=== PATIENT | female | born 1980 | race Asian ===

== ENCOUNTER 2016-11-08 06:50 | Inpatient (IN) | payer OTHER ==
[2016-11-08] MEDS: ELECTROLYTE-148 SOLN 1,000 ML IV SCH (07:28)
[2016-11-08] MEDS ORDERED: CITRIC ACID/SODIUM CITRATE 30 ML UNIT-DOSE CUP PO ONE (07:48)
--- NOTE | 2016-11-08 07:55 | HP ---
Past Medical History - Primary Care Physician PCP:: Jonathan Church - Admission Chief Complaint: 39 weeks, previous c/s , request of c/s History of Present Illness: 36 yo f , one previous c/s ,request of repeat c/s, rba discussed, cx closed,, discussed History Source: Patient Limitations to Obtaining History: No Limitations - Past Medical History ...: 3 ...Para: 1 ...Term: 1 ...Spon : 1 ...EDC by Dates: 11/05/16 ...EDC by Sono: 11/15/16 Additional OB History: abnormal 1 hr gtt, normal 3 hr - Past Surgical History Past Surgical History: Yes: Hx Myomectomy: No Hx Transabdominal Cerclage: No - Smoking History Smoking history: Never smoked - Alcohol/Substance Use History of Substance Use: reports: None - Social History Usual Living Arrangement: Yes: With Spouse History of Recent Travel: No Home Medications - Allergies Allergies/Adverse Reactions: Allergies Allergy/AdvReac Type Severity Reaction Status Date / Time metoclopramide HCl Allergy Verified 03/14/13 20:52 [From Reglan] - Home Medications Home Medications: Ambulatory Orders No Home Medications 0 dose .ROUTE UTDICT 03/14/13 Review of Systems - Review of Systems Constitutional: reports: No Symptoms Eyes: reports: No Symptoms HENT: reports: No Symptoms Neck: reports: No Symptoms Cardiovascular: reports: No Symptoms Gastrointestinal: reports: No Symptoms Genitourinary: reports: No Symptoms Breasts: reports: No Symptoms Reported Musculoskeletal: reports: No Symptoms Integumentary: reports: No Symptoms Neurological: reports: No Symptoms Endocrine: reports: No Symptoms Hematology/Lymphatic: reports: No Symptoms Psychiatric: reports: No Symptoms Physical Exam - Maternity Constitutional: Yes: Well Nourished, No Distress, Calm Eyes: Yes: WNL, Conjunctiva Clear, EOM Intact HENT: Yes: WNL, Atraumatic, Normocephalic Neck: Yes: WNL, Supple, Trachea Midline Cardiovascular: Yes: WNL, Regular Rate and Rhythm Breast(s): Yes: WNL - Abdominal Exam/OB Fundal Height: 40 Number of Fetuses: Single Presentation: Vertex Intensity: Unaware Monitor Mode: External Heart Rate Location: LLQ Category: I - Vaginal Exam/OB Vaginal Bleediing: No Speculum Exam: No Dilatation (cm): closed Effacement (%): 50 Amniotic Membrane Status: Intact Presentation: Vertex/Position Station: -3 - Physical Exam Extremities: Yes: WNL Edema: Yes Edema: LLE: 1+, RLE: 1+ Deep Tendon Reflex Grade: Normal +2 Hemorrhage Risk Assessment - Risk Factors Medium Risk Factors: Yes: None High Risk Factors: Yes: None Risk Score: 1 Risk Level: Medium Risk Problem List - Problems (1) with 39 completed weeks gestation Code(s): Z3A.39 - 39 WEEKS GESTATION OF (2) Previous delivery, antepartum Code(s): O34.219 - MATERNAL CARE FOR UNSP TYPE SCAR FROM PREVIOUS DEL (3) Advanced maternal age (AMA) in Code(s): SHB9071 - Assessment/Plan c/s rba discussed
[2016-11-08 08:11] VITALS: BMI 32.9
[2016-11-08] MEDS ORDERED: ONDANSETRON 4 MG/2 ML VIAL IVPB PRN (09:04)
[2016-11-08] MEDS ORDERED: ACETAMINOPHEN 1000 MG/100 ML VIAL (NON FORMULARY) IVPB PRN (09:06)
[2016-11-08] MEDS: OXYTOCIN 20 UNITS in 0.9% NS 1,000 ML IV SCH ×2 (09:15→11:16)
[2016-11-08] MEDS ORDERED: BENZOCAINE 28 GM HEMORRHOIDAL OINTMENT PR PRN (09:31)
[2016-11-08] MEDS ORDERED: METHYLERGONOVINE MALEATE 0.2 MG/1 ML AMP IM PRN (09:31)
[2016-11-08] MEDS ORDERED: diphenhydrAMINE HCL 25 MG CAPSULE (FP) PO PRN (09:31)
[2016-11-08] MEDS ORDERED: IBUPROFEN 800 MG/8 ML IJ IVPB PRN (09:31)
[2016-11-08] MEDS ORDERED: oxyCODONE HCL 5 MG TABLET PO PRN ×2 (09:31)
[2016-11-08] MEDS ORDERED: BENZOCAINE 20% 57 GM BOTTLE TP PRN (09:31)
[2016-11-08] MEDS ORDERED: WITCH HAZEL 50% (TUCKS) 40 PAD/JAR PAD TP PRN (09:31)
[2016-11-08] MEDS ORDERED: DEXTROSE 5%-LACTATED RINGERS 1,000 ML IV SCH (09:45)
[2016-11-08] MEDS: CEFAZOLIN 1 GM/D5W 50 ML IVPB SCH ×2 (11:12→17:30)
[2016-11-08] MEDS: IBUPROFEN 800 MG/8 ML IJ IVPB PRN (11:58)
[2016-11-08] MEDS ORDERED: TUBERCULIN PPD 5 TU/0.1ML SYRINGE (IN PATIENT USE ONLY) ID ONE (12:00)
[2016-11-09] MEDS: IBUPROFEN 800 MG/8 ML IJ IVPB PRN (05:44)
[2016-11-09 07:16] LABS: BASOPHIL 0.4 % (0-2.0); EOSINOPHIL 0.4 % (0-4.5); MCH 29.7 pg (25.7-33.7); MCHC 33.7 g/dl (32.0-36.0); MEAN CELL VOLUME 88.1 fl (80-96); MEAN PLT VOLUME 8.8 fl (7.5-11.1); NEUTROPHILS 69.9 % (42.8-82.8); PLATELET COUNT 170 K/MM3 (134-434); RDW 13.3 % (11.6-15.6); WHITE BLOOD COUNT 6.7 K/mm3 (4.0-10.0)
[2016-11-09] MEDS ORDERED: BISACODYL 10 MG SUPP.RECT RC PRN (09:31)
[2016-11-09] MEDS: ENOXAPARIN NA (PORCINE) 40 MG/0.4 ML DISP.SYRIN SQ SCH (10:00)
[2016-11-09] MEDS ORDERED: ACETAMINOPHEN 325 MG TABLET (FP) ONE (10:42)
[2016-11-09] MEDS: SIMETHICONE 80 MG TAB.CHEW (FP) PO PRN ×3 (10:43→19:46)
--- NOTE | 2016-11-09 11:47 | PN ---
Progress Note (short form) - Note Progress Note: pod 1 , doing well, no excess vaginal bleeding CBC, BMP 11/09/16 06:00 Last Vital Signs Temp Pulse Resp BP Pulse Ox 98.6 F 89 18 117/68 100 11/09/16 05:20 11/09/16 05:20 11/09/16 06:00 11/09/16 05:20 11/08/16 14:16 abdomen soft, no distension, no cva incision dry, clean no calf tenderness plan ambulate, advance diet, iron and vit Problem List - Problems (1) with 39 completed weeks gestation Code(s): Z3A.39 - 39 WEEKS GESTATION OF (2) Previous delivery, antepartum Code(s): O34.219 - MATERNAL CARE FOR UNSP TYPE SCAR FROM PREVIOUS DEL (3) Advanced maternal age (AMA) in Code(s): VGV8408 -
[2016-11-09] MEDS ORDERED: DIPHTH,PERTUSS(ACELL),TET 0.5 ML DISP.SYRIN IM ONE (14:00)
[2016-11-09] MEDS: ACETAMINOPHEN 325 MG TABLET (FP) PO PRN ×3 (15:08→23:17)
[2016-11-09] MEDS: IBUPROFEN 600 MG TABLET (FP) PO PRN ×3 (15:09→23:18)
--- NOTE | 2016-11-09 16:37 | PN ---
Progress Note (short form) - Note Progress Note: Anesthesiology post op check S/p c section post op day 1 under spinal anesthesia with duramorph for post op pain control Patient reports adequate pain control, no nausea or vomiting and full return of motor function. Vital Signs Temperature 98.6 F 11/09/16 05:20 Pulse Rate 89 11/09/16 05:20 Respiratory Rate 20 11/09/16 08:00 Blood Pressure 117/68 11/09/16 05:20 O2 Sat by Pulse Oximetry (%) 100 11/08/16 14:16 No sign of neurologic deficits A/P no adverse effects of anesthetic, dept of anesthesia will sign off care at this time, Feel free to re consult the department with further questions or concerns regarding pain or the anesthetic administered.
[2016-11-09] MEDS: SENNOSIDES/DOCUSATE COMBO (SENNA PLUS) TABLET (UD) PO PRN (22:00)
[2016-11-10] MEDS: IBUPROFEN 600 MG TABLET (FP) PO PRN ×5 (03:02→21:58)
[2016-11-10] MEDS: ACETAMINOPHEN 325 MG TABLET (FP) PO PRN ×5 (03:02→21:58)
[2016-11-10] MEDS: ENOXAPARIN NA (PORCINE) 40 MG/0.4 ML DISP.SYRIN SQ SCH (09:34)
--- NOTE | 2016-11-10 12:02 | PN ---
Progress Note (short form) - Note Progress Note: pod 2 doing well, no c/o voids ok. passing gas CBC, BMP 11/09/16 06:00 Last Vital Signs Temp Pulse Resp BP Pulse Ox 98.9 F 66 20 129/72 100 11/10/16 09:00 11/10/16 09:00 11/10/16 09:00 11/10/16 09:00 11/08/16 14:16 abdomen soft, no distension, no cva incision dry, clean no calf tenderness plan ambulate, cbc in am Problem List - Problems (1) with 39 completed weeks gestation Code(s): Z3A.39 - 39 WEEKS GESTATION OF (2) Previous delivery, antepartum Code(s): O34.219 - MATERNAL CARE FOR UNSP TYPE SCAR FROM PREVIOUS DEL (3) Advanced maternal age (AMA) in Code(s): [id number] -
[2016-11-10] MEDS: SIMETHICONE 80 MG TAB.CHEW (FP) PO PRN ×3 (12:06→21:58)
[2016-11-10] MEDS: SENNOSIDES/DOCUSATE COMBO (SENNA PLUS) TABLET (UD) PO PRN (22:00)
[2016-11-11] MEDS: ELECTROLYTE-148 SOLN 1,000 ML IV SCH (05:05)
[2016-11-11] MEDS: IBUPROFEN 600 MG TABLET (FP) PO PRN ×3 (05:09→15:10)
[2016-11-11] MEDS: ACETAMINOPHEN 325 MG TABLET (FP) PO PRN ×3 (05:09→15:11)
--- NOTE | 2016-11-11 08:03 | DS ---
Physical Exam-SLIVER LAPPER Vital Signs: Vital Signs Temperature 98.2 F 11/10/16 22:00 Pulse Rate 67 11/10/16 22:00 Respiratory Rate 18 11/10/16 22:00 Blood Pressure 120/75 11/10/16 22:00 O2 Sat by Pulse Oximetry (%) 100 11/08/16 14:16 Constitutional: Yes: Well Nourished, No Distress, Calm Eyes: Yes: WNL, Conjunctiva Clear, EOM Intact HENT: Yes: WNL, Atraumatic, Normocephalic Neck: Yes: WNL, Supple, Trachea Midline Cardiovascular: Yes: WNL, Regular Rate and Rhythm Respiratory: Yes: WNL, Regular, CTA Bilaterally Gastrointestinal: Yes: WNL ...Rectal Exam: Yes: WNL Renal/: Yes: WNL External Genitalia: Yes: Normal ....Post : Yes: Uterus firm, Uterus non-tender, Slight lochia rubra Breast(s): Yes: WNL Musculoskeletal: Yes: WNL Extremities: Yes: WNL Edema: LLE: Trace, RLE: Trace Integumentary: Yes: WNL Wound/Incision: Yes: Clean/Dry, Well Approximated, Sutures Intact Neurological: Yes: WNL, Alert, Oriented ...Motor Strength: WNL Psychiatric: Yes: WNL, Alert, Oriented Labs: CBC, BMP 11/09/16 06:00 Delivery - Delivery Section: Repeat, Low Flap Transverse (no complication) Type of Anesthesia: Spinal Episiotomy/Laceration: None EBL (cc): 500 Delivery, Single - Stages of Labor Date of Delivery: 11/08/16 Time of Delivery: 08:58 Time Placenta Delivered: 08:59 Placenta: Yes: Expressed - Condition of [employer] Boards Router/Paralegal Legal Secretary Present: Yes Name: Silverio Geller Gender: Male Weight: 8 lb 5 oz Position: Right, OT Total Hours ROM (Hrs/Mins): 2 min - 1 Minute Total Score: 9 10 Minutes Total Score: 9 - [place] Feeding Plan Initial Plan: Elected not to breastfeed exclusively throughout hospitalization Discharge Summary Reason For Visit: previous c/s Current Active Problems Advanced maternal age (AMA) in (Acute) with 39 completed weeks gestation (Acute) Previous delivery, antepartum (Acute) Procedures: Principal: repeat LST c/s Hospital Course: uneventful Condition: Good - Instructions Diet, Activity, Other Instructions: regular diet, follow up office 1 week, no intercourse Referrals: Jonathan Church MD [Staff Physician] - Disposition: HOME - Home Medications Comprehensive Discharge Medication List: Ambulatory Orders No Home Medications 0 dose .ROUTE UTDICT 03/14/13 Vit No.130/Iron/FA [ Vitamins] 1 each PO DAILY 11/08/16 Ibuprofen [Motrin -] 600 mg PO QID #28 tablet 11/10/16
[2016-11-11 08:46] LABS: BASOPHIL 0.2 % (0-2.0); EOSINOPHIL 1.8 % (0-4.5); MCH 29.5 pg (25.7-33.7); MCHC 33.5 g/dl (32.0-36.0); MEAN PLT VOLUME 8.4 fl (7.5-11.1); NEUTROPHILS 75.6 % (42.8-82.8); PLATELET COUNT 199 K/MM3 (134-434); WHITE BLOOD COUNT 6.1 K/mm3 (4.0-10.0)
[2016-11-11] MEDS: SIMETHICONE 80 MG TAB.CHEW (FP) PO PRN ×2 (09:53→15:12)
[2016-11-11] MEDS: ENOXAPARIN NA (PORCINE) 40 MG/0.4 ML DISP.SYRIN SQ SCH (09:57)
[2016-11-11 11:09] VITALS: BP 123/75; PULSE 65; TEMP 98.1
--- NOTE | 2016-11-11 23:45 | OP ---
DATE OF OPERATION: 11/08/2016 PREOPERATIVE DIAGNOSIS: at 39 weeks, previous section, requests repeat section. POSTOPERATIVE DIAGNOSIS: at 39 weeks, previous section, requests repeat section. PROCEDURE: Repeat low segment transverse section. SURGEON: Jonathan Navarro MD AUTOMATIC NAILING MACHINE FEEDER: Tyler Dave MD ANESTHESIA: Spinal. ESTIMATED BLOOD LOSS: 500 mL. OPERATION: The patient was taken to the operating room with adequate spinal anesthesia. Abdomen and perineum were prepped and draped. Pfannenstiel abdominal skin incision was made over the previous incision. Abdominal wall was cut layer by layer until the peritoneum was exposed and incised. Upon entering the abdominal cavity, lower uterine segment was identified on the uterovesical fold. The bladder flap was established and the bladder was pushed down. With the lower blade of the [place] retractor in the pelvis, a low transverse uterine incision was made. The incision was extended laterally and amniotic sac was entered, clear fluid. Head delivered. Nasal sinuses were suctioned. Live baby was delivered without any difficulty. Placenta was delivered manually. Uterine cavity was cleaned of all remaining tissue. Uterine incision was closed in 2 layers; 1st layer with 0 Biosyn continuous suture and the 2nd layer with 0 Biosyn imbricating the 1st layer. Bladder flap was closed with 0 Biosyn continuous suture. Both tubes and ovaries were checked and normal. No active bleeding was seen. All of the lap, sponge count, and instrument counts were correct. The peritoneum was closed with 0 Biosyn continuous suture. Muscles were brought together with interrupted suture of 0 Biosyn. Fascia was closed with 0 Biosyn continuous suture. Subcutaneous fat, interrupted sutures with 0 Biosyn. Skin was closed with 3-0 Vicryl subcuticular sutures. Patient tolerated the procedure well and left the OR in good condition. Christi [id number]
--- NOTE | 2016-11-12 17:01 | PATH ---
Surgical Pathology Report Patient Name: LICHA EDMONDS Med. Rec. #: [id number] /Age/Gender: 1980 (Age: 36) / F Account: [id number] Location: [facility] OBS/FELT COVERER Taken: 11/08/2016 Received: 11/11/2016 Reported: 11/12/2016 Physicians: Jonathan Church M.D. Specimen(s) Received PLACENTA Clinical History section 2010 Final Diagnosis PLACENTA, DELIVERY: FOCALLY DISRUPTED THIRD TRIMESTER PLACENTA WITH THREE VESSEL UMBILICAL CORD AND UNREMARKABLE PLACENTAL MEMBRANES. Electronically Signed Dewayne Krause M.D. Gross Description The specimen is received fresh labeled placenta and is a 505 gram, 22 x 20 x 2.4 cm. placenta with attached membranes and umbilical cord. The attached membranes are glistening and translucent and insert marginally. The umbilical cord measures 69 cm. in length and averages 1 cm. in diameter. The cord inserts eccentrically, 5 cm. to the nearest margin. No true knots or strictures are identified. Cut surface of the umbilical cord reveals 3 vessels. The surface is arriola-blue with minimal fibrin deposition and appropriate caliber vessels. The maternal surface is red-brown with focal defects. Sectioning reveals red-brown, spongy parenchyma. No lesions are identified. [employer]st sections are submitted in three cassettes as follows: 1- membrane rolls and umbilical cord; 2-3- full thickness sections of placenta. [facility]/11/11/2016 the medical center/11/11/2016
== END 2016-11-11 17:00 | disposition home or self-care (01) | DRG 766 ==
LOC: JLDR 06:50 → J3W 12:42
PROVIDERS: ADMIT Obstetrics & Gynecology; ATTEND Obstetrics & Gynecology
PROC: 10D00Z1 Extraction of Products of Conception, Low, Open Approach (ICD-10-PCS; principal; 2016-11-08)
DX: O34.211 Maternal care for low transverse scar from previous cesarean delivery (principal); N85.8 Other specified noninflammatory disorders of uterus; Z3A.39 39 weeks gestation of pregnancy; Z37.0 Single live birth
CPT/HCPCS: 36415; 85025; 88307-TC; 90715

== ENCOUNTER 2018-10-01 10:56 | Emergency (ER) | payer OTHER ==
[2018-10-01 11:04] VITALS: BP 139/93; PULSE 97; TEMP 97.9; BMI 26.6
[2018-10-01] MEDS ORDERED: KETOROLAC TROMETHAMINE 30 MG/1 ML VIAL IM ONE (12:00)
--- NOTE | 2018-10-01 12:09 | PDOC ---
History of Present Illness - General Chief Complaint: Pain Stated Complaint: PAIN Time Seen by Provider: 10/01/18 11:44 History Source: Patient Exam Limitations: Clinical Condition - History of Present Illness Initial Comments: 10/01/18 12:04 Patient with past medical history of sciatica present with complaint of 2 day history of right hip pain with cramping pain to posterior thigh area which improves when naproxen but comes back. Patient reported doing a lot of hiking lately. Denies trauma or injury to hip or back. Denies any other symptoms Timing/Duration: other (2 days) Past History - Past Medical History Allergies/Adverse Reactions: Allergies Allergy/AdvReac Type Severity Reaction Status Date / Time metoclopramide HCl Allergy Verified 10/01/18 11:04 [From Reglan] Home Medications: Ambulatory Orders No Home Medications 0 dose .ROUTE UTDICT 03/14/13 Methocarbamol [Robaxin -] 500 mg PO TID #21 tablet 10/01/18 Naproxen 500 mg PO BID PRN #20 tablet 10/01/18 Asthma: No Cancer: No Cardiac Disorders: No COPD: No Diabetes: No HTN: No Seizures: No Thyroid Disease: No - Suicide/Smoking/Psychosocial Hx Smoking History: Never smoked Information on smoking cessation initiated: No Hx Alcohol Use: No Drug/Substance Use Hx: No Hx Substance Use Treatment: No Review of Systems - Review of Systems Able to Perform ROS?: Yes Is the patient limited Welsh proficient: No Constitutional: No: Malaise, Weakness HEENTM: No: Symptoms Reported Respiratory: No: Symptoms reported Cardiac (ROS): No: Symptoms Reported ABD/GI: No: Symptoms Reported Musculoskeletal: Yes: Symptoms Reported, See HPI, Joint Pain (right hip), Muscle Pain (cramping pain to right hip radiating down leg). No: Joint Swelling Neurological: No: Numbness, Paresthesia, Tingling All Other Systems: Reviewed and Negative *Physical Exam - Vital Signs Last Vital Signs Temp Pulse Resp BP Pulse Ox 97.9 F 97 H 19 139/93 99 10/01/18 11:02 10/01/18 11:02 10/01/18 11:02 10/01/18 11:02 10/01/18 11:02 - Physical Exam Comments: 10/01/18 12:07 GENERAL: Well developed, well nourished. Awake and alert in mild acute distress. CARDIOVASCULAR: Regular rate and rhythm. No murmurs, rubs, or gallops. PULMONARY: No evidence of respiratory distress. MUSCULOSKELETAL : Moderate tenderness to lateral aspect of right hip over the ASIS. Increased pain with elevation of right lower extremity to 45. No tenderness to posterior spine. No bony deformities EXTREMITIES: No cyanosis. No clubbing. No edema. No calf tenderness. SKIN: Warm and dry. Normal capillary refill. No rashes. No jaundice. NEUROLOGICAL: Alert, awake, appropriate. No motor deficits in the lower extremities. Gait is normal without ataxia. PSYCHIATRIC: Cooperative. Good eye contact. Appropriate mood and affect. General Appearance: Yes: Nourished, Appropriately Dressed, Mild Distress ED Treatment Course - RADIOLOGY Radiology Studies Ordered: Category Date Time Status HIP & PELVIS-RIGHT [RAD] Stat Radiology 10/01/18 12:00 Ordered SPINE-LUMBAR SACRAL [RAD] Stat Radiology 10/01/18 12:00 Ordered Medical Decision Making - Medical Decision Making 10/01/18 12:05 Patient with past medical history of sciatica present with complaint of 2 day history of right hip pain with cramping pain to posterior thigh area which improves when naproxen but comes back. Patient reported doing a lot of hiking lately. Denies trauma or injury to hip or back. Denies any other symptoms Exam significant for moderate tenderness to right lateral hip over ASIS. Increased pain to right hip with elevation of right lower extremity to 45. Positive straight leg raise to 45. Symptoms likely sciatica versus muscle spasm. X-ray of right hip and lumbosacral ordered to rule out acute pathology. Toradol 60 mg IM ordered for pain. Treat based on x-ray results 10/01/18 13:21 x-rays of lumbosacral spine with no acute findings. right hip/pelvic x-ray shows calcification lateral to greater trocanter c/w tendonitis. Patient will be discharged on naproxen prn for pain and robaxin muscle relaxer with orthopedics f/u prn. Pt advised on hot compress to hip *DC/Admit/Observation/Transfer Diagnosis at time of Disposition: Acute right hip pain, Tendonitis involving right hip abductors - Discharge Dispostion Disposition: HOME Condition at time of disposition: Stable Decision to Admit order: No - Prescriptions Prescriptions: Methocarbamol [Robaxin -] 500 mg PO TID #21 tablet Naproxen 500 mg PO BID PRN #20 tablet PRN Reason: pain - Referrals Referrals: Ricky Garcia MD, [facility] [Staff Physician] - - Patient Instructions Printed Discharge Instructions: Tendinopathy, Iliotibial Band Syndrome, DI for Tendinitis Additional Instructions: Your x-ray of lower back was normal. Your hip x-ray shows tendinitis which is inflammation of the tendon of the hip. Take prescribed medication as needed for pain and spasm. Apply hot compresses to right hip 2-3 times a day for 5-10 minutes as needed for pain. Follow-up referred to orthopedics if no improvement in 3 days - Post Discharge Activity
[2018-10-01] MEDS ORDERED: KETOROLAC TROMETHAMINE 30 MG/1 ML VIAL ONE (12:38)
== END 2018-10-01 13:15 | disposition home or self-care (01) ==
LOC: JERFT 10:56
PROC: 3E0233Z Introduction of Anti-inflammatory into Muscle, Percutaneous Approach (ICD-10-PCS; principal; 2018-10-01)
DX: M76.891 Other specified enthesopathies of right lower limb, excluding foot (principal)
CPT/HCPCS: 72100-TC-FY; 73523-TC-FY; 99282-25